=== PATIENT | female | born 1955 | race Caucasian/White ===

== ENCOUNTER 2020-06-08 11:58 | Emergency (ER) | payer MEDICARE, MEDICAID, SELFPAY ==
--- NOTE | 2020-06-08 12:01 | HMH.EDGENADL ---
ED Disposition Clinical Impression: Cellulitis Qualifiers: Site of cellulitis: extremity Site of cellulitis of extremity: lower extremity Laterality: left Qualified Code(s): L03.116 - Cellulitis of left lower limb Disposition: Home, Self-Care Condition on Discharge: Good Referrals: Otoniel Pelletier MD [Primary Care Provider] - 3 days - Critical Care Critical Care Time: No Attestation: On , the high probability of a clinically significant, sudden or life threatening deterioration of the following system(s) required my full and direct attention, intervention and personal management. The time I documented below is in addition to time spent performing reported procedures but includes the following listed in this critical care notation. Medical Decision Making - Shakeel Inquiry Pt receiving controlled substance: No Vital Signs: 06/08/20 12:05 Temperature 98.2 F Temperature Source Oral Pulse Rate [Right] 74 Respiratory Rate 16 Blood Pressure [Right Arm] 172/92 H Blood Pressure Mean [Right Arm] 118 Blood Pressure Source [Right Arm] Automatic Cuff Blood Pressure Position [Right Arm] Sitting 02 Sat by Pulse Oximetry 98 Oxygen Delivery Method Room Air - Lab Data Lab Results 06/08/20 12:30: Urine Color Straw, Urine Appearance Clear, Urine pH 7.0, Ur Specific [place] 1.010, Urine Protein Negative, Urine Glucose (UA) Negative, Urine Ketones Negative, Urine Blood Negative, Urine Nitrate Negative, Urine Bilirubin Negative, Urine Urobilinogen 0.2, Ur Leukocyte Esterase Negative, Urine WBC 3-5, Ur Squamous Epith Cells Occasional 06/08/20 12:30: WBC 9.7, RBC 4.54, Hgb 13.7, Hct 43.6, MCV 96.0, MCH 30.1, MCHC 31.3 L, RDW 12.9, Plt Count 442 H, MPV 7.4, Neut % (Auto) 61.4, Lymph % (Auto) 29.8, [place] % (Auto) 7.9, Eos % (Auto) 0.6, Baso % (Auto) 0.4, Neut # (Auto) 5.9, Lymph # (Auto) 2.9, [place] # (Auto) 0.8, Eos # (Auto) 0.1, Baso # (Auto) 0.0 06/08/20 12:30: Sodium 137, Potassium 3.6, Chloride 99, Carbon Dioxide 30, Anion Gap 11.6, BUN 7, Creatinine 0.50 L, Estimated Creat Clear 48, Estimated GFR 124, Est GFR ( Amer) 150, Glucose 95, Calcium 9.8, TSH 3.49 Result diagrams: 06/08/20 12:30 06/08/20 12:30 Orders (Tests/Meds): ORDERS Category Date Time Status Blood Culture Stat Micro 06/08/20 12:30 Received - US Data US Images: Lower Extremity Preliminary Findings: Normal/NAD Findings Narrative: Discussed with pharmacy sales assistant Medical Decision Narrative: 64yo F evaluated for a red left foot. Differential diagnosis includes was not limited to: Cellulitis, osteomyelitis, DVT, erysipelas. Patient is in no acute distress and very anxious to be discharged. Laboratory studies are unremarkable. Patient underwent ultrasound that was negative for DVT. Only willing to have the ultrasound completed on the left lower extremity and refused examination of the right. Her assisted living facility was unable to provide any paperwork and then was unable to be contacted for further information regarding her allergies. As such she was started on clindamycin. Patient will be continued on Clinda p.o. outpatient. General Adult HPI - General Stated complaint: left upper leg redness Time Seen by Provider: 06/08/20 12:02 Mode of Arrival: EMS Source of Information: Patient - History of Present Illness HPI narrative: 64yo F with past medical history of schizophrenia presents to the emergency department with complaint of a red, swollen left foot. Patient is uncertain how long this is been present. Patient initially told nursing that her foot was bitten by a rat, she tells me her foot was scratched by cat. [facility] lawn staff report the patient's foot was rolled over by wheelchair. Patient denies any significant pain in that extremity. She denies any shortness of breath. She denies fever, nausea/vomiting/diarrhea. Patient has allergies to penicillins and vancomycin but is uncertain what her reactions were. - Related Data Allergies
[2020-06-08 12:05] VITALS: BP 172/92; PULSE 74; RESP 16; TEMP 36.8; O2SAT 98; BMI 20.5
--- NOTE | 2020-06-08 12:15 | CA_ITS ---
APPROVED REPORT Left Lower Extremity Venous Study for DVT. [employer]: Catherine Friend, RT(R) Indications Lower Extremity Pain: Left Lower Extremity Edema: Left red, swollen, recent trauma. Patient is a schizophrenic and is unsure of me scanning her leg. She is uncooperative and combative, limiting scanning. Patient states a rat bit her foot and a rabid cat scratched her left leg, nurses confirm this is untrue. Vein Imaging FEM (L): compressive, spontaneous, phasic, augmentation POP (L): Not Visualized PTV (L): Compressible GSV (L): compressive, spontaneous, phasic, augmentation Peroneals (L):Compressible Findings No DVT or SVT seen in this limited venous doppler exam of LLE. Conclusion No DVT or SVT seen in this limited venous doppler exam of LLE. Electronically signed by : Renzo Garrido MD 06/08/2020 14:55:22
[2020-06-08 12:38] LABS: Basophils % 0.4 % (0.1-2.0); Eosinophils # 0.1 K/mm3 (0.0-0.4); Eosinophils % 0.6 % (0.1-12.0); Hematocrit 43.6 % (37.0-47.0); Hemoglobin 13.7 g/dL (12.2-16.2); Lymphocytes # 2.9 K/mm3 (0.7-4.5); Lymphocytes % 29.8 % (10-50); Mean Corpuscular HGB Conc 31.3 g/dL (31.8-35.4); Mean Corpuscular Hemoglobin 30.1 pg (27.0-31.2); Mean Platelet Volume 7.4 fl (7.4-10.4); Microscopic, Urine URINE MICROSCOPIC (MICROSCOPIC); Monocytes # 0.8 K/mm3 (0.1-1.0); Monocytes % 7.9 % (1.7-9.3); Neutrophils # 5.9 K/mm3 (1.8-7.8); Neutrophils % 61.4 % (37.0-80.0); Platelet Count 442 K/mm3 (142-424); Red Blood Count 4.54 M/mm3 (4.20-5.40); Red Cell Distribution Width 12.9 % (11.5-17.5); White Blood Count 9.7 K/mm3 (4.8-10.8)
[2020-06-08 12:42] LABS: Appearance,Urine CLEAR (Clear); Bilirubin,Urine Negative (Negative); Blood, Urine Negative (Negative); Color,Urine STRAW (Yellow); Glucose,Urine (UA) Negative (Negative); Ketones,Urine Negative (Negative); Leukocyte Esterase,Urine Negative (Negative); Nitrate,Urine Negative (Negative); Protein,Urine Negative (Negative); Urobilinogen,Urine 0.2 EU/dl (0.2)
[2020-06-08 12:44] LABS: Anion Gap 11.6 mEq/L (5-15); Blood Urea Nitrogen 7 mg/dl (7-17); Calcium 9.8 mg/dl (8.4-10.2); Carbon Dioxide 30 mmol/L (22.0-30.0); Chloride 99 mmol/L (98-107); Creatinine Clearance Estimated 48 mL/min (50-200); Estimated Glomerular Filt Rate 124 ml/min (>60); GFR (African American) 150 ML/MIN (>60); Glucose 95 mg/dl (74-100); Potassium 3.6 mmoL/L (3.5-5.1); Sodium 137 mmol/L (136-145)
[2020-06-08 12:53] LABS: Squamous Epithelial Cell,Urine Occasional #/hpf (0-5)
[2020-06-08 13:15] LABS: Thyroid Stimulating Hormone 3.49 uIU/mL (0.465-4.68)
--- NOTE | 2020-06-08 13:59 | PC.NURSE ---
Notified mely kern pt ready for d/c
--- NOTE | 2020-06-08 14:06 | PC.NURSE ---
pt agitated and ready to go. Notified Leandro Larsen pt ready for d/c pt refusing to let me obtain v/s at this time. pacing around the room.
[2020-06-08 14:36] VITALS: BP 172/92; PULSE 87; RESP 16; TEMP 36.6; O2SAT 98
== END 2020-06-08 14:38 | disposition home or self-care (01) ==
PROVIDERS: Emergency Provider Family Medicine; PCP Emergency Medicine
DX: L03.116 Cellulitis of left lower limb (principal); F17.210 Nicotine dependence, cigarettes, uncomplicated; Z88.0 Allergy status to penicillin; Z88.5 Allergy status to narcotic agent
CPT/HCPCS: 80048; 81001; 84443; 85025; 87040; 93970; 93971; 99283

== ENCOUNTER 2020-08-24 23:31 | Emergency (ER) | payer MEDICARE, MEDICAID, SELFPAY ==
[2020-08-24 23:30] VITALS: BP 103/75; PULSE 70; RESP 18; TEMP 36.7; O2SAT 98; BMI 22.1
[2020-08-24 23:52] LABS: Basophils % 0.4 % (0.1-2.0); Eosinophils # 0.1 K/mm3 (0.0-0.4); Eosinophils % 0.6 % (0.1-12.0); Hematocrit 41.5 % (37.0-47.0); Hemoglobin 13.5 g/dL (12.2-16.2); Lymphocytes # 3.6 K/mm3 (0.7-4.5); Lymphocytes % 45.1 % (10-50); Mean Corpuscular HGB Conc 32.5 g/dL (31.8-35.4); Mean Corpuscular Hemoglobin 28.4 pg (27.0-31.2); Mean Corpuscular Volume 87.6 fl (81-99); Mean Platelet Volume 7.7 fl (7.4-10.4); Monocytes # 0.8 K/mm3 (0.1-1.0); Monocytes % 10.5 % (1.7-9.3); Neutrophils # 3.4 K/mm3 (1.8-7.8); Neutrophils % 43.4 % (37.0-80.0); Platelet Count 178 K/mm3 (142-424); Red Blood Count 4.74 M/mm3 (4.20-5.40); Red Cell Distribution Width 14.9 % (11.5-17.5); White Blood Count 7.9 K/mm3 (4.8-10.8)
[2020-08-24 23:53] LABS: Chloride 100 mmol/L (98-107); Potassium 3.9 mmoL/L (3.5-5.1); Sodium 132 mmol/L (136-145)
[2020-08-24 23:55] LABS: Bilirubin,Unconjugated 0.3 mg/dL (0.0-1.1); Blood Urea Nitrogen 8 mg/dl (7-17); Creatinine Clearance Estimated 49 mL/min (50-200); Estimated Glomerular Filt Rate 124 ml/min (>60); GFR (African American) 150 ML/MIN (>60)
[2020-08-24 23:56] LABS: Alanine Aminotransferase 6 U/L (12-78); Albumin Level 3.8 g/dl (3.5-5.0); Alkaline Phosphatase 70 U/L (38-126); Anion Gap 10.9 mEq/L (5-15); Aspartate Amino Transferase 18 U/L (14-36); Bilirubin,Direct 0.1 mg/dl (0.0-0.4); Bilirubin,Indirect 0.3 mg/dL (0.0-0.9); Bilirubin,Total 0.4 mg/dl (0.2-1.3); Calcium 9.3 mg/dl (8.4-10.2); Carbon Dioxide 25 mmol/L (22.0-30.0); Glucose 88 mg/dl (74-100); Total Protein,Serum 6.7 g/dl (6.3-8.2)
--- NOTE | 2020-08-25 00:02 | CT_ITS ---
PROCEDURE INFORMATION: Exam: CT Cervical Spine Without Contrast Exam date and time: 08/25/2020 12:02 AM Age: 64 years old Clinical indication: Injury or trauma; Fall; Blunt trauma; Injury date: 08/24/2020; Injury details: Fell out of bed neck pain TECHNIQUE: Imaging protocol: Computed tomography images of the cervical spine without contrast. Radiation optimization: All CT scans at this facility use at least one of these dose optimization techniques: automated exposure control; mA and/or kV adjustment per patient size (includes targeted exams where dose is matched to clinical indication); or iterative reconstruction. COMPARISON: No relevant prior studies available. FINDINGS: Bones/joints: No acute cervical spine fracture. The facet alignment is preserved bilaterally. The occipital condyles and C1-C2 articulations appear intact. Mild anterolisthesis of C3 on C4. The cervical lordosis is slightly reversed. Hypertrophic degenerative changes are identified at the junction of the anterior C1 arch and dens process. The bilateral C2-C3 facets appear fused. Discs/Spinal canal/Neural foramina: Degenerative changes are visualized at multiple cervical levels. Facet arthropathy is identified at multiple cervical levels. A vacuum disc phenomena is identified at C4-C5. A disc protrusion is identified at C2-C3, with mild spinal canal stenosis. Varying degrees of neural foraminal narrowing are identified at multiple cervical levels. Lungs: No pneumothorax, as visualized. At the right pulmonary apex on series 602, image 40, there is a 2 mm pleural-based nodule. Vasculature: Atherosclerotic changes. Soft tissues: No significant prevertebral soft tissue swelling. IMPRESSION: 1. No acute cervical spine fracture. 2. Mild anterolisthesis of C3 on C4. 3. The cervical lordosis is slightly reversed. 4. Degenerative changes are visualized at multiple cervical levels. 5. A disc protrusion is identified at C2-C3, with mild spinal canal stenosis. 6. At the right pulmonary apex, there is a 2 mm pleural-based nodule.For patients at low risk (minimal or absent history of smoking and of other known risk factors), no routine follow-up is indicated. For patients at high risk (history of smoking or of other known risk factors), consider optional CT Chest at 12 months. (Reference: Ines) REFERENCES: Ines Alford et al. Guidelines for Management of Incidental Pulmonary Nodules Detected on CT Images: From the Fleischner Society 2017. Radiology. 2017;284(1):228-243.
--- NOTE | 2020-08-25 00:03 | CT_ITS ---
PROCEDURE INFORMATION: Exam: CT Head Without Contrast Exam date and time: 08/25/2020 12:03 AM Age: 64 years old Clinical indication: Injury or trauma; Fall; Blunt trauma (contusions or hematomas); Without loss of consciousness; Injury date: 08/24/2020; Injury details: Fell out of bed and has hematoma top of head TECHNIQUE: Imaging protocol: Computed tomography of the head without contrast. Radiation optimization: All CT scans at this facility use at least one of these dose optimization techniques: automated exposure control; mA and/or kV adjustment per patient size (includes targeted exams where dose is matched to clinical indication); or iterative reconstruction. COMPARISON: No relevant prior studies available. FINDINGS: Brain: Symmetric increased fluid within the bilateral frontal convexities, likely contributed by cerebral volume loss/atrophy. Additional sulcal atrophy visualized. No acute intracranial hemorrhage is visualized. The white-biswas differentiation is preserved demonstrating no acute territorial type infarct. There is minimal periventricular white matter hypodensity, likely representing small vessel ischemic disease in a patient this age. The acuity of the white matter disease is indeterminate. There is no midline shift. Artifact limits evaluation of the yamil. Cerebral ventricles: Mild age-appropriate prominence of the ventricles. Bones/joints: The calvarium demonstrates no evidence for a depressed fracture. Paranasal sinuses: There is opacification of scattered ethmoid air cells. A left nasal polypoid density projects into the left maxillary sinus. Mastoid air cells: No mastoid effusion. Vasculature: Intracranial atherosclerosis visualized. Soft tissues: Soft tissue swelling/hematoma of the left frontal scalp superiorly. IMPRESSION: 1. No acute intracranial hemorrhage or acute territorial type infarct. 2. Soft tissue swelling/hematoma of the left frontal scalp superiorly. 3. Symmetric increased fluid within the bilateral frontal convexities, likely contributed by cerebral volume loss/atrophy. 4. There is minimal periventricular white matter hypodensity, likely representing small vessel ischemic disease in a patient this age. 5. Additional findings described above.
--- NOTE | 2020-08-25 00:04 | XR_ITS ---
PROCEDURE INFORMATION: Exam: XR Pelvis Exam date and time: 08/25/2020 12:04 AM Age: 64 years old Clinical indication: Injury or trauma; Fall; Blunt trauma (contusions or hematomas); Bilateral; Pelvic region; Injury date: 08/24/2020; Injury details: Fell out of bed says she hurts all over. Trauma protocol TECHNIQUE: Imaging protocol: XR pelvis. Views: 1 or 2 view. COMPARISON: No relevant prior studies available. FINDINGS: Chronic degenerative changes in the lower lumbar spine, sacroiliac and hip joints. Otherwise unremarkable appearing bones and joints without evidence of a fracture line. No discrete lytic or blastic lesion. IMPRESSION: Chronic degenerative changes without acute bony abnormality or injury. COMMENT: Recommend followup with CT if persistent/new or worsening symptoms.
--- NOTE | 2020-08-25 00:17 | HMH.EDFALL ---
ED Disposition Clinical Impression: Cellulitis of scalp Head contusion Qualifiers: Encounter type: initial encounter Contusion of head detail: scalp Qualified Code(s): S00.03XA - Contusion of scalp, initial encounter Fall Qualifiers: Encounter type: initial encounter Qualified Code(s): W19.XXXA - Unspecified fall, initial encounter Disposition: Home, Self-Care Condition on Discharge: Good Instructions: How to Prevent Falls Additional Instructions: see pcp for follow up Referrals: Otoniel Pelletier MD [Primary Care Provider] - - Critical Care Critical Care Time: No Attestation: On 08/24/20, the high probability of a clinically significant, sudden or life threatening deterioration of the following system(s) required my full and direct attention, intervention and personal management. The time I documented below is in addition to time spent performing reported procedures but includes the following listed in this critical care notation. Medical Decision Making - Medical Records Medical records reviewed: Yes: I reviewed the patient's medical records. - Shakeel Inquiry Pt receiving controlled substance: No Vital Signs: 08/24/20 23:30 Temperature 98.0 F Temperature Source Oral Pulse Rate [Right Brachial] 70 Respiratory Rate 18 Blood Pressure [Right Arm] 103/75 L Blood Pressure Mean [Right Arm] 84 Blood Pressure Source [Right Arm] Automatic Cuff Blood Pressure Position [Right Arm] Sitting 02 Sat by Pulse Oximetry 98 Oxygen Delivery Method Room Air - Lab Data Lab results reviewed: Yes: I reviewed the patient's lab results. Lab Results 08/24/20 23:30: WBC 7.9, RBC 4.74, Hgb 13.5, Hct 41.5, MCV 87.6, MCH 28.4, MCHC 32.5, RDW 14.9, Plt Count 178, MPV 7.7, Neut % (Auto) 43.4, Lymph % (Auto) 45.1, [place] % (Auto) 10.5 H, Eos % (Auto) 0.6, Baso % (Auto) 0.4, Neut # (Auto) 3.4, Lymph # (Auto) 3.6, [place] # (Auto) 0.8, Eos # (Auto) 0.1, Baso # (Auto) 0.0 08/24/20 23:30: Sodium 132 L, Potassium 3.9, Chloride 100, Carbon Dioxide 25, Anion Gap 10.9, BUN 8, Creatinine 0.50 L, Estimated Creat Clear 49, Estimated GFR 124, Est GFR ( Amer) 150, Glucose 88, Calcium 9.3, Total Bilirubin 0.4, Direct Bilirubin 0.1, Conjugated Bilirubin 0.0, Indirect Bilirubin 0.3, Unconjugated Bilirubin 0.3, AST 18, ALT 6 L, Alkaline Phosphatase 70, Total Protein 6.7, Albumin 3.8 08/25/20 00:18: Urine Color Yellow, Urine Appearance Clear, Urine pH 6.5, Ur Specific [place] <= 1.005, Urine Protein Negative, Urine Glucose (UA) Negative, Urine Ketones Negative, Urine Blood Trace-i, Urine Nitrate Negative, Urine Bilirubin Negative, Urine Urobilinogen 0.2, Ur Leukocyte Esterase Trace, Urine WBC 5-10, Ur Squamous Epith Cells 3-5, Urine Bacteria 1+ Result diagrams: 08/24/20 23:30 08/24/20 23:30 Orders (Tests/Meds): ORDERS Category Date Time Status CT cervical spine wo con Stat Cat Scan 08/25/20 00:[address] head/brain wo con Stat Cat Scan 08/25/20 00:03 Taken XR chest portable Stat Exams 08/25/20 23:56 Taken XR pelvis 1-2V Stat Exams 08/25/20 00:04 Taken - Radiology Data #1 Image(s): Chest, Pelvis Image Reviewed: Yes I reviewed the patient's radiology image Preliminary Findings: No Fracture Seen - CT Data CT Scan: Head, C-Spine Time Received: 03:[address] Reviewed: Yes: I have viewed the radiologist's interpretation Preliminary Findings: No Fracture Seen Medical Decision Narrative: no fx seen and clinically stable Fall HPI - General Chief Complaint: Fall Stated Complaint: rolled out of bed and hit head on table Time Seen by Provider: 08/25/20 00:00 Mode of Arrival: EMS Source of Information: Patient, EMS, Medical Record Limitations: No Limitations Description of Symptoms (Recalled from ER Triage Doc. by RN): pt states she was attempting to reach for her cigarettes on her bedside table, and kept on rolling forward and fell off the bed. no real injury but would like evaluation. noted scabbed area to top of hea
[2020-08-25 00:40] LABS: Microscopic, Urine URINE MICROSCOPIC (MICROSCOPIC)
[2020-08-25 00:41] LABS: Appearance,Urine CLEAR (Clear); Bilirubin,Urine Negative (Negative); Blood, Urine TRACE-I (Negative); Color,Urine YELLOW (Yellow); Glucose,Urine (UA) Negative (Negative); Ketones,Urine Negative (Negative); Leukocyte Esterase,Urine TRACE (Negative); Nitrate,Urine Negative (Negative); PH,Urine 6.5 (5.0-8.5); Protein,Urine Negative (Negative); Specific Gravity, Urine <= 1.005 (1.005-1.030); Urobilinogen,Urine 0.2 EU/dl (0.2)
[2020-08-25 00:54] LABS: Bacteria,Urine 1+ /lpf
[2020-08-25 03:28] VITALS: BP 122/75; PULSE 71; RESP 18; TEMP 36.8; O2SAT 98
--- NOTE | 2020-08-25 23:56 | XR_ITS ---
PROCEDURE INFORMATION: Exam: XR Chest Exam date and time: 08/25/2020 11:56 PM Age: 64 years old Clinical indication: Injury or trauma; Fall; Blunt trauma (contusions or hematomas); Injury date: 08/24/2020; Injury details: Fell out of bed PT says she hurts all over. Trauma protocol TECHNIQUE: Imaging protocol: XR of the chest. Views: 1 view. COMPARISON: No relevant prior studies available. FINDINGS: Unremarkable appearing lungs and mediastinum. No effusion or pneumothorax. Cardiomediastinal silhouette is normal. IMPRESSION: No active lung parenchymal lesion.
== END 2020-08-25 03:30 | disposition home or self-care (01) ==
PROVIDERS: Emergency Provider Emergency Medicine; PCP Emergency Medicine
DX: S00.03XA Contusion of scalp, initial encounter (principal); L03.811 Cellulitis of head [any part, except face]; W06.XXXA Fall from bed, initial encounter; Y92.193 Bedroom in other specified residential institution as the place of occurrence of the external cause; F17.210 Nicotine dependence, cigarettes, uncomplicated; Z88.0 Allergy status to penicillin; Z88.5 Allergy status to narcotic agent
CPT/HCPCS: 70450; 71045; 72125; 72170; 80048; 80076; 81001; 85025; 99283

== ENCOUNTER 2020-08-27 13:57 | Emergency (ER) | payer MEDICARE, MEDICAID, SELFPAY ==
[2020-08-27 13:59] VITALS: BP 103/62; PULSE 78; RESP 19; TEMP 37.1; O2SAT 95; BMI 21.9
[2020-08-27 14:30] VITALS: BP 99/64; PULSE 74; O2SAT 94
--- NOTE | 2020-08-27 14:46 | PC.NURSE ---
at bedside performing sutures.
--- NOTE | 2020-08-27 14:55 | PC.NURSE ---
MD Godinez speaking with Liyah at this time via phone.
--- NOTE | 2020-08-27 14:56 | PC.NURSE ---
HERB TODD speaking with Dr Pelletier
--- NOTE | 2020-08-27 15:00 | HMH.EDGENADL ---
ED Disposition Clinical Impression: Skin lesion of scalp Disposition: Home, Self-Care Condition on Discharge: Good Instructions: DI for Skin Abscess Additional Instructions: Change bandage daily. Clindamycin as prescribed. Dr. Pelletier will follow up culture results and referred patient to surgery. Call Dr. Pelletier for further problems. Prescriptions: clindamycin HCL [Clindamycin HCl] 300 mg PO QID #40 cap Prescription Printed Referrals: Otoniel Pelletier MD [Primary Care Provider] - - Critical Care Critical Care Time: No Attestation: On 08/27/20, the high probability of a clinically significant, sudden or life threatening deterioration of the following system(s) required my full and direct attention, intervention and personal management. The time I documented below is in addition to time spent performing reported procedures but includes the following listed in this critical care notation. Medical Decision Making - Shakeel Inquiry Pt receiving controlled substance: No Vital Signs: 08/27/20 13:59 08/27/20 14:30 Temperature 98.7 F Temperature Source Oral Pulse Rate 74 Pulse Rate [Left Radial] 78 Respiratory Rate 19 Blood Pressure 99/64 L Blood Pressure [Right Arm] 103/62 L Blood Pressure Mean 73 Blood Pressure Mean [Right Arm] 75 02 Sat by Pulse Oximetry 95 94 L Oxygen Delivery Method Room Air Orders (Tests/Meds): ED MEDICATIONS Discontinued Medications Generic Name Dose Route Start Last Admin Trade Name Andrea PRN Reason Stop Dose Admin Lidocaine/Epinephrine 10 ml 08/27/20 14:23 Lidocaine 2% W/Epi 1:100,000 20ml Vial IJ 08/27/20 14:24 ONCE ONE ORDERS Category Date Time Status Wound Culture and Gram Stain Stat Micro 08/27/20 14:45 Received - Physician Consults Physician Consulted: Liyah Time: 15:00 Reason -: Pt condition Comment/Response: Started on clindamycin. He will refer to surgery for possible excision of lesion and he will follow-up culture results General Adult HPI - General Chief complaint: Skin/Abscess/Foreign Body Stated complaint: laceration Time Seen by Provider: 08/27/20 14:30 Mode of Arrival: EMS Limitations: No Limitations Description of Symptoms (Recalled from ER Triage Doc. by RN): c/o drainage from a sore noted on the top her head. Pt was seen 2 days ago for the same complaint Sore is raised with a scab around it with some yellowish drainage. She has been picking it. - History of Present Illness HPI narrative: Brought in by ambulance from [facility]. She has a scalp lesion that is scabbed and draining, she has been picking at it. She was seen in the emergency department 2 days ago for a fall with a head injury at which time she busted open the scalp lesion. She says the scalp lesion has been present for quite some time, although she does not know when it first started. However, she says it keeps getting bigger. - Related Data Previous Rx's Medication Instructions Recorded clindamycin HCL [Clindamycin HCl] 300 mg PO Q8 #30 cap 06/08/20 lorazepam 0.5 mg tablet 0.5 mg PO TID #90 tab 07/27/20 clindamycin HCL [Clindamycin HCl] 300 mg PO QID #40 cap 08/27/20 Allergies Allergy/AdvReac Type Severity Reaction Status Date / Time codeine Allergy Verified 06/08/20 12:16 Penicillins Allergy Verified 06/08/20 12:16 vancomycin Allergy Verified 06/08/20 12:16 [facility] History - Hepatitis A Screen Drug use history?: No High risk sexual behaviors?: No History of sexually transmitted infection?: No Currently employed?: No Childcare worker?: No Do you have indoor plumbing?: Yes Do you have electricity?: Yes Attestation statement:: This patient has been screened for Hepatitis A risk factors. I have reviewed the patient's past medical history: Yes Comment: Schizophrenia Amputation: No - Social History Smoking Status: Current every day smoker ROS Obtained: Yes Systems reviewed as appropriate & no additional c
[2020-08-27 15:01] VITALS: BP 81/63; PULSE 76
--- NOTE | 2020-08-27 15:03 | PC.NURSE ---
notified mely kern that patient was ready to return to the facility
--- NOTE | 2020-08-27 15:04 | PC.NURSE ---
Pt wound packed with WTD 4x4, secured with kerlex. Pt tolerated well, bloody puss drainage noted.
[2020-08-27 15:51] VITALS: BP 81/63; PULSE 76; RESP 18; TEMP 37.1; O2SAT 94
== END 2020-08-27 15:53 | disposition home or self-care (01) ==
PROVIDERS: Emergency Provider Emergency Medicine; PCP Emergency Medicine
DX: L02.811 Cutaneous abscess of head [any part, except face] (principal); Z88.0 Allergy status to penicillin; Z88.5 Allergy status to narcotic agent
CPT/HCPCS: 10060; 87070; 87077; 87186; 87205; 99282

== ENCOUNTER → 2021-06-22 14:11 | Outpatient (CLI) | payer MEDICARE, MEDICAID, SELFPAY ==
[2021-06-22 14:31] LABS: Microscopic, Urine URINE MICROSCOPIC (MICROSCOPIC)
[2021-06-22 15:33] LABS: Appearance,Urine CLEAR (Clear); Bilirubin,Urine Negative (Negative); Blood, Urine TRACE-I (Negative); Color,Urine YELLOW (Yellow); Glucose,Urine (UA) Negative (Negative); Ketones,Urine TRACE (Negative); Leukocyte Esterase,Urine 2+ (Negative); Nitrate,Urine Negative (Negative); Protein,Urine Negative (Negative); Specific Gravity, Urine 1.015 (1.005-1.030)
[2021-06-22 15:34] LABS: Bacteria,Urine Trace /lpf
[2021-06-27 10:09] LABS: D001-IgE D pteronyssinus <0.10 kU/L (Class 0); D002-IgE D farinae <0.10 kU/L (Class 0); E001-IgE Cat Dander <0.10 kU/L (Class 0); E005-IgE Dog Dander <0.10 kU/L (Class 0); E072-IgE Mouse Urine <0.10 kU/L (Class 0); G002-IgE Bermuda Grass <0.10 kU/L (Class 0); G006-IgE Timothy Grass <0.10 kU/L (Class 0); I006-IgE Cockroach, German <0.10 kU/L (Class 0); Immunoglobulin E, Total 14 IU/mL (6-495); M001-IgE Penicillium chrysogen <0.10 kU/L (Class 0); M002-IgE Cladosporium herbarum <0.10 kU/L (Class 0); M003-IgE Aspergillus fumigatus <0.10 kU/L (Class 0); M006-IgE Alternaria alternata 0.14 kU/L (Class 0/I); T001-IgE Maple/Box Elder <0.10 kU/L (Class 0); T003-IgE Common Silver Birch <0.10 kU/L (Class 0); T006-IgE Cedar, Mountain <0.10 kU/L (Class 0); T007-IgE Oak, White <0.10 kU/L (Class 0); T008-IgE Elm, American <0.10 kU/L (Class 0); T010-IgE Walnut <0.10 kU/L (Class 0); T011-IgE Maple Leaf Sycamore <0.10 kU/L (Class 0); T014-IgE Cottonwood <0.10 kU/L (Class 0); T015-IgE Ash, White <0.10 kU/L (Class 0); T022-IgE Pecan, Hickory <0.10 kU/L (Class 0); T070-IgE White Mulberry <0.10 kU/L (Class 0); W001-IgE Ragweed, Short <0.10 kU/L (Class 0); W011-IgE Thistle, Russian <0.10 kU/L (Class 0); W014-IgE Pigweed, Common <0.10 kU/L (Class 0); W018-IgE Sheep Sorrel <0.10 kU/L (Class 0)
== END ==
PROVIDERS: PCP Emergency Medicine; Visit Provider Otolaryngology
DX: J32.9 Chronic sinusitis, unspecified (principal); J34.2 Deviated nasal septum; J34.3 Hypertrophy of nasal turbinates; N39.0 Urinary tract infection, site not specified
CPT/HCPCS: 36415; 81001; 82785; 86003; 87086

== ENCOUNTER → 2021-08-02 15:34 | Outpatient (CLI) | payer MEDICARE, MEDICAID, SELFPAY ==
--- NOTE | 2021-08-02 15:34 | CT_ITS ---
FINAL REPORT TECHNIQUE: Thin section axial CT images of the facial bones and sinuses were obtained without contrast. Coronal reformatted images were also obtained. This study was performed with techniques to keep radiation doses as low as reasonably achievable, (ALARA). Individualized dose reduction techniques using automated exposure control or adjustment of mA and/or kV according to the patient''''s size were employed. CLINICAL HISTORY: deviated nasal septum FINDINGS: There is mild mucosal thickening of the right maxillary sinus and several ethmoid air cells. There is a defect in the left medial maxillary sinus wall, may be postoperative versus congenital. There is soft tissue in the lateral aspect of the middle turbinate, may represent polyposis. No significant curvature is seen of the nasal septum. No fluid levels are identified. No fracture or acute bony abnormality is identified. IMPRESSION: Soft tissue in the middle turbinate, may represent polyposis. Reviewed, Interpreted and Dictated by Peter Cody III, MD Transcribed by Tonja Diallo Authenticated by Peter Cody III, MD on 08/02/2021 04:23:38 PM [facility]
== END ==
PROVIDERS: PCP Emergency Medicine; Visit Provider Otolaryngology
DX: J32.9 Chronic sinusitis, unspecified (principal); J34.2 Deviated nasal septum; J34.3 Hypertrophy of nasal turbinates
CPT/HCPCS: 70486